=== PATIENT | male | born 1980 | race African-American/Black ===

== ENCOUNTER 2016-06-01 10:10 | Inpatient (IN) | payer OTHER ==
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
--- NOTE | ~2016-06-01 | PN ---
Unit #: [id number] #: [id number] Patient: LYNETTE VELIZ [id number] [facility] [address] [place] [address] [id number] I MR#: [id number] NAME: LYNETTE VELIZ. ROOM: [facility]6 Age: 35 Sex: M Admission Date: 06/01/2016 : 1980 Attending Physician: Hans Chiang M.D. Admitting Physician: Hans Chiang M.D. Primary Care Physician: Generic Doctor Not In System [facility] PROGRESS NOTES DATE 06/02/2016 DISCUSSION Mr. Veliz is a 35-year-old white male who was seen today and chart was reviewed and case was discussed with the staff. He has been anxious, withdrawn and rather seclusive to himself. Meanwhile, he has been cooperative with treatment recommendations and has been taking medications and tolerating them fairly well with no reported side effects. MENTAL STATUS EXAMINATION Young white male who was casually dressed with fair personal hygiene and appears to be in no acute distress or discomfort. He was awake and alert with intact orientation. His mood was anxious with congruent affect. He denies any suicidal or homicidal ideations. His insight and judgement remains slightly impaired. TREATMENT PLAN 1. Will continue on his current medications and treatment protocol and will monitor his response to the medications and make further adjustments as needed. 2. Will continue to follow up. Dictated by... Hans Chiang M.D. IAA/bertha TD: 06/02/2016 16:07 JOB #: [id number] Unit #: [id number] #: [id number] Patient: LYNETTE VELIZ PROGRESS NOTES Page 1 of 1 X Hans Chiang MD PROGRESS NOTE
--- NOTE | ~2016-06-01 | PN ---
Unit #: [id number] #: [id number] Patient: LYNETTE VELIZ [id number] [facility] [address] [place] [address] [id number] I MR#: [id number] NAME: LYNETTE VELIZ. ROOM: [facility]6 Age: 35 Sex: M Admission Date: 06/01/2016 : 1980 Attending Physician: Hans Chiang M.D. Admitting Physician: Hans Chiang M.D. Primary Care Physician: Emma Doctor Not In System [facility] PROGRESS NOTES DATE 06/04/2016 DISCUSSION Mr. Veliz is a 35-year-old, male who was seen today and chart was reviewed and case was discussed with the staff. He has been anxious, withdrawn and rather seclusive to himself. Meanwhile, he has been cooperative with treatment recommendations and has been taking medications and tolerating them fairly well with no reported side effects. MENTAL STATUS EXAM Young male who was casually dressed with fair personal hygiene, appears to be in no acute distress or discomfort. He was awake and alert with impaired attention and concentration. His mood was anxious with congruent affect. He denies any suicidal or homicidal ideations. His insight and judgement remains slightly impaired. TREATMENT PLAN 1. We will continue him on his current medications and treatment protocol. We will monitor his response to the medication and make further adjustments as needed. 2. We will continue to follow up. Dictated by... Lorena Bonner/liana TD: 06/06/2016 00:42 JOB #: [id number] Unit #: [id number] #: [id number] Patient: LYNETTE VELIZ ALICIAMERY PROGRESS NOTES Page 1 of 1 X Hans Chiang MD PROGRESS NOTE
--- NOTE | ~2016-06-01 | PN ---
Unit #: [id number] #: [id number] Patient: LYNETTE VELIZ [id number] [facility] [address] [place] [address] [id number] I MR#: [id number] NAME: LYNETTE VELIZ. ROOM: [facility]6 Age: 35 Sex: M Admission Date: 06/01/2016 : 1980 Attending Physician: Hans Chiang M.D. Admitting Physician: Hans Chiang M.D. Primary Care Physician: Generic Doctor Not In System [facility] PROGRESS NOTES DATE 06/03/2016 DISCUSSION Mr. Veliz is a 35-year-old male who was seen today and chart was reviewed and case was discussed with the staff. He has been anxious, withdrawn and rather seclusive to himself. Meanwhile, he has been cooperative with treatment recommendations and has been taking medications and tolerating them fairly well. MENTAL STATUS EXAMINATION male who was casually dressed with fair personal hygiene and appears to be in no acute distress or discomfort. He was awake and alert with impaired attention and concentration. His mood was anxious with congruent affect. He denies any suicidal or homicidal ideations. His insight and judgement remains slightly impaired. TREATMENT PLAN 1. Will continue on his current medications and treatment protocol. Will monitor his response to medications and make further adjustments as needed. 2. Will continue to follow up. Dictated by... Lorena Bonner/bertha TD: 06/03/2016 18:12 JOB #: [id number] Unit #: [id number] #: [id number] Patient: LYNETTE VELIZMERY PROGRESS NOTES Page 1 of 1 X Hans Chiang MD PROGRESS NOTE
--- NOTE | ~2016-06-01 | HP ---
Unit #: [id number] #: [id number] Patient: ERIS VELIZ [id number] [place] [address] [id number] I MR#: [id number] NAME: ERIS VELIZ. ROOM: [facility]6 Age: 35 Sex: M Admission Date: 06/01/2016 : 1980 Attending Physician: Hans Chiang M.D. Admitting Physician: Hans Chiang M.D. Primary Care Physician: Generic Doctor Not In System HISTORY AND PHYSICAL HISTORY OF PRESENT ILLNESS Eris is a 35 year old admitted to [address] [place] [address] with depression and verbalizing wanting to hurt himself. PAST MEDICAL HISTORY Nothing significant. PAST SURGICAL HISTORY Nothing reported. ALLERGIES No known drug allergies. SOCIAL HISTORY Smokes less than one-half pack per day. Drinks alcohol rarely. Admits to using marijuana daily and abuses opioids and amphetamines. FAMILY HISTORY Medically noncontributory. REVIEW OF SYSTEMS CONSTITUTIONAL: No fever or chills. HEENT: Denies any sore throat, ear pain or runny nose. CARDIOVASCULAR: Denies chest pain, irregular heart rhythm or palpitations. CHEST: Denies shortness of breath or cough. No hemoptysis. GASTROINTESTINAL: Denies nausea, vomiting, diarrhea or chronic constipation. ENDOCRINE: Denies history of increased thirst or urination. No recent significant weight loss or gain. GENITOURINARY: Denies dysuria, frequency, or hematuria. SKIN: Denies any rashes. HEMATOLOGIC: Denies history of increased bleeding or bruising. MUSCULOSKELETAL: Denies any hot, swollen joints. No generalized muscle pain. NEUROLOGIC: Denies problems with vision or speech. No frequent, severe headaches. No numbness, tingling or weakness in any extremities. Denies loss of bladder or bowel control. CURRENT MEDICATIONS 1. Desyrel 100 mg q.h.s. 2. Risperdal 1 mg b.i.d. 3. Depakote 250 mg b.i.d. Unit #: [id number] #: [id number] Patient: ERIS VELIZ 4. Milk of Magnesia p.r.n. 5. Maalox p.r.n. 6. Tylenol p.r.n. 7. Nicotine 7 mg q day PHYSICAL EXAMINATION GENERAL: Alert, well-nourished, in no apparent distress. VITAL SIGNS: Blood pressure 120/84, heart rate 100, respirations 16, temperature 98.6. WEIGHT: 135 pounds. HEIGHT: 5'5". SKIN: Warm and dry without rash or lesion. HEENT: Normocephalic. TMs not viewed. Oral and nasal passages clear. Conjunctivae clear. Pupils equal, round and reactive to light and accommodation. Extraocular movements intact. NECK: Supple without lymphadenopathy or thyromegaly. HEART: Regular rate and rhythm without murmur. LUNGS: Clear. ABDOMEN: Soft, nontender. : Not done. EXTREMITIES: No evidence of cyanosis, clubbing or edema. Moves all extremities without focal deficit. NEUROLOGICAL: Grossly within normal limits. Cranial Nerves: II: Visual shaikh are intact. III, IV AND : Extraocular movements are intact. Pupils are equal, round and reactive to light. V: Facial sensation is grossly normal. VII: Facial movements and expression are normal. VIII: Auditory acuity grossly intact. IX, X: Uvula is midline. Phonation is normal. XI: Patient shrugs shoulders and turns head normally. XII: Tongue protrudes in the midline. Sensory and Motor Function: Sensory and motor sensation is grossly normal. Motor: moves all extremities well. Coordination: Gait is normal. Deep Tendon Reflexes: Intact. IMPRESSION Psychiatric admission RECOMMENDATIONS PSYCHIATRIC: Per psychiatrist. MEDICAL: I see no contraindications to participating in facility's activities. MEDICAL PROGNOSIS Good. MEDICAL CONDITION Stable. Dictated by... Lexis Grayson P.A.-C. for Lorena Doty/liana Unit #: [id number] #: [id number] Patient: ERIS VELIZ TD: 06/01/2016 20:47 JOB #: [id number] HISTORY AND PHYSICAL Page 1 of 1 X Lexis Grayson HISTORY AND PHYSICAL
--- NOTE | ~2016-06-01 | PN ---
Unit #: [id number] #: [id number] Patient: LYNETTE VELIZ [id number] [facility] [address] [place] [address] [id number] I MR#: [id number] NAME: LYNETTE VELIZ. ROOM: [facility]6 Age: 35 Sex: M Admission Date: 06/01/2016 : 1980 Attending Physician: Hans Chiang M.D. Admitting Physician: Hans Chiang M.D. Primary Care Physician: Emma Doctor Not In System [facility] PROGRESS NOTES DATE June 06, 2016 DISCUSSION Mr. Veliz is a 35-year-old male, who was seen today and chart was reviewed and the case was discussed with the staff. He has been anxious, withdrawn, and rather seclusive to himself. Meanwhile, he has been cooperative with the treatment recommendations and he has been taking the medications and tolerating them fairly well with no reported side effects. MENTAL STATUS EXAMINATION Young male, who was casually dressed with fair personal hygiene and appears to be in no acute distress or discomfort. He was awake and alert on interaction with intact orientation. His mood is anxious with a congruent affect. He denies any suicidal or homicidal ideations. His insight and judgment remain slightly impaired. TREATMENT PLAN 1. We will continue him on his current medications and treatment protocol, and will monitor his response to the medications, and make further adjustments as needed. 2. We will continue to followup. Dictated by... Lorena Bonner/govind TD: 06/06/2016 12:13 JOB #: [id number] Unit #: [id number] #: [id number] Patient: LYNETTE VELIZ MAHENDRA PROGRESS NOTES Page 1 of 1 X Hans Chiang MD PROGRESS NOTE
--- NOTE | ~2016-06-01 | PN ---
Unit #: [id number] #: [id number] Patient: LYNETTE VELIZ [id number] [facility] [address] [place] [address] [id number] I MR#: [id number] NAME: LYNETTE VELIZ ROOM: [facility]6 Age: 35 Sex: M Admission Date: 06/01/2016 : 1980 Attending Physician: Hans Chiang M.D. Admitting Physician: Hans Chiang M.D. Primary Care Physician: Generic Doctor Not In System [facility] PROGRESS NOTES DATE 06/05/2016 DISCUSSION Mr. Veliz is a 35-year-old, male who was seen today and chart was reviewed and case was discussed with the staff. He has been anxious, withdrawn and rather seclusive to himself. Meanwhile, he has been cooperative with the treatment recommendations. He has been taking the medication and tolerating them fairly well. MENTAL STATUS EXAM Young male who was casually dressed with fair personal hygiene, appears to be in no acute distress or discomfort. He was awake and alert on interaction with intact orientation. His mood was anxious with congruent affect. He denies any suicidal or homicidal ideation. His insight and judgement remains slightly impaired. TREATMENT PLAN We will continue him on his current treatment protocol. We will monitor his response and make further adjustments as needed. Dictated by... Lorena Bonner/liana TD: 06/06/2016 04:38 JOB #: [id number] [facility] PROGRESS NOTES Page 1 of 1 X Hans Chiang MD X PROGRESS NOTE
[2016-06-02 09:47] LABS: BASOPHIL% 0.7 % (0-2.5); EOSINOPHIL# 0.2 X10e3 (0-0.7); EOSINOPHIL% 3.4 % (0.0-7.0); HEMATOCRIT 50.2 % (38.0-50.0); LYMPHOCYTE# 1.5 X10e3 (1.0-3.5); LYMPHOCYTE% 23.8 % (17.0-45.0); MEAN CELL VOLUME 87.8 FL (83-96); MEAN CORPUSCULAR HEMOGLOBIN 29.7 PG (28-34); MEAN CORPUSCULAR HGB CONC 33.8 g/dL (30-36); MEAN PLATELET VOLUME 7.5 FL (6.5-11.5); MONOCYTE# 0.8 X10e3 (0-1.0); MONOCYTE% 12.6 % (3.0-12.0); NEUTROPHIL# 3.8 X10e3 (1.5-7.1); NEUTROPHIL% 59.5 % (40-75); PLATELET COUNT 265 X10e3 (140-420); RED BLOOD COUNT 5.72 X10e (3.90-5.60); RED CELL DISTRIBUTION WIDTH 13.3 % (11.0-15.5); WHITE BLOOD COUNT 6.4 X10e3 (4.0-10.5)
[2016-06-02 09:54] LABS: DIFF IND NO
[2016-06-02 10:21] LABS: THYROID STIMULATING HORMONE 0.45 uIU/ml (0.34-5.60)
[2016-06-02 10:27] LABS: FREE THYROXIN (T4) 1.12 ng/dL (0.58-1.64)
[2016-06-02 10:45] LABS: ALBUMIN SERUM 4.3 g/dL (3.5-5.0); BUN/CREATININE RATIO 18.46; CALCIUM SERUM 9.3 mg/dL (8.4-10.2); CREATININE SERUM 1.3 mg/dL (0.6-1.4); GLOM FILT RATE Estimated 83.1 mL/min (>60); POTASSIUM 3.7 mmol/L (3.5-5.1); PROTEIN TOTAL SERUM 7.8 g/dL (6.0-8.3)
== END 2016-06-06 15:10 | disposition home or self-care (01) | DRG 885 ==
LOC: POF 10:10 → P1S 10:41
PROVIDERS: Psychiatry & Neurology Psychiatry
DX: F20.0 Paranoid schizophrenia (principal); Z59.0 Homelessness; F11.10 Opioid abuse, uncomplicated; F17.210 Nicotine dependence, cigarettes, uncomplicated; F15.10 Other stimulant abuse, uncomplicated; F12.90 Cannabis use, unspecified, uncomplicated
CPT/HCPCS: 80053; 80164; 84439; 84443; 85025; J1200; J3486